=== PATIENT | female | born 1945 | race Caucasian/White ===

== ENCOUNTER 2017-03-31 18:54 | Inpatient (IN) ==
[2017-03-31 19:50] LABS: MANUAL DIFF NEEDED? NO
[2017-03-31 19:54] LABS: BASO% 0.2 % (0.0-0.8); EOS# 0.17 X1000 (0.0-0.7); EOS% 1.7 % (0.0-10.0); HEMATOCRIT 42.4 % (37.0-47.0); HEMOGLOBIN 13.5 g/dL (12.0-16.0); IMM GRAN# 0.03 X1000 (0.0-0.04); IMM GRAN% 0.3 % (0.0-0.5); LYMPH# 4.26 X1000 (1.2-3.4); LYMPH% 41.4 % (20.5-51.1); MCH 27.4 PG (27-31); MCHC 31.8 g/dL (33-37); MCV 86.2 FL (81-99); MONO# 0.94 X1000 (0.11-0.59); MONO% 9.1 % (1.7-9.3); MPV 11.8 FL (7.4-10.4); NEUT% 47.3 % (42.2-75.2); PLT 272 X1000 (130-400); RBC 4.92 XMIL (4.2-5.4)
[2017-03-31 20:01] LABS: URINE MICRO REVIEW NEEDED? NO; URINE SOURCE CLEAN CATCH
[2017-03-31 20:03] LABS: PROTIME 10.5 Seconds (9.2-11.7); PTT 24.3 Seconds (22.0-36.0)
[2017-03-31 20:05] LABS: BILIRUBIN URINE NEGATIVE (NEGATIVE); BLOOD URINE NEGATIVE (NEGATIVE); COLOR YELLOW; GLUCOSE URINE NEGATIVE (NEGATIVE); LEUKOCYTES URINE TRACE (NEGATIVE); NITRITE URINE NEGATIVE (NEGATIVE); PROTEIN URINE NEGATIVE (NEGATIVE); SP GRAVITY URINE 1.002; TURBIDITY URINE CLEAR (CLEAR); UR EPITHELIAL CELLS <10 /HPF (<10); URINE BACTERIA NEGATIVE /HPF; URINE CULTURE NEEDED? YES; URINE RBC <10 /HPF (<10); URINE WBC <10 /HPF (<10); UROBILINOGEN URINE NORMAL (NORMAL)
[2017-03-31 20:11] LABS: AGAP 20; ALBUMIN 4.7 g/dL (3.5-5.0); ALKALINE PHOSPHATASE 72 U/L (32-104); BUN 11 mg/dL (8-22); CALCIUM 10.7 mg/dL (8.8-10.2); CHLORIDE 97 mmol/L (98-107); CK PROFILE 69 U/L (24-173); COSMO 284; GOT 41 U/L (10-30); GPT 22 U/L (10-36); SODIUM 141 mmol/L (136-145); TCO2 24 mmol/L (25-35); TOTAL BILIRUBIN 0.28 mg/dL (0.20-1.00); TOTAL PROTEIN 8.1 g/dL (6.3-8.3)
--- NOTE | 2017-03-31 20:13 | Diag Imaging Result Doc PS360 ---
EXAM: CHEST-PORTABLE HISTORY: AMS TECHNIQUE: Portable AP COMPARISON: None. FINDINGS: The lungs are well expanded. Heart is not enlarged. The vessels are not distended. No pneumonia. No pleural effusions identified. IMPRESSION: Negative chest. Electronically signed by Nitish Hicks 03/31/2017 8:11 PM
[2017-03-31 20:15] LABS: UR AMPHETAMINES QUAL NONE DETECTED (NONE DETECT); UR BARBITUATES QUAL NONE DETECTED (NONE DETECT); UR BENZODIAZEPIN QUAL NONE DETECTED (NONE DETECT); UR CANNABINOIDS QUAL NONE DETECTED (NONE DETECT); UR COCAINE QUAL NONE DETECTED (NONE DETECT); UR METHADONE QUAL NONE DETECTED (NONE DETECT); UR OPIATES QUAL NONE DETECTED (NONE DETECT); UR OXYCODONE QUAL NONE DETECTED (NONE DETECT); UR PCP QUAL NONE DETECTED (NONE DETECT)
--- NOTE | 2017-03-31 20:27 | Diag Imaging Result Doc PS360 ---
EXAM: CT HEAD WITHOUT HISTORY: Stroke TECHNIQUE: CT brain without contrast. Dose reduction protocol. COMPARISON: None. FINDINGS: No parenchymal hemorrhage. No epidural or subdural hematoma. No subarachnoid hemorrhage. There is a large hypodense area in the medial right occipital lobe. This is consistent with a recent infarct. No midline shift. No hydrocephalus. No sinus opacification. IMPRESSION: 1.Recent right occipital infarct 2.No hemorrhage 3.A preliminary report was called to Dr. Evans in the emergency room at 8:20 PM Electronically signed by Nitish Hicks 03/31/2017 8:24 PM
[2017-03-31] MEDS ORDERED: ASPIRIN PO STA (20:39)
[2017-03-31] MEDS: NS 1,000 ML IV SCH (20:45)
--- NOTE | 2017-03-31 22:18 | HISTORY AND PHYSICAL ---
PCP: Is Dr. Sergio Rasheed. CHIEF COMPLAINT: Left-sided visual disturbance. HISTORY OF PRESENT ILLNESS: Mrs. Frias is a is a 71-year-old female with a history of hypertension, diabetes mellitus, hypothyroidism, diabetic neuropathy and others who presents with a 4-day history of left-sided blurry vision. She awoke around 4 days ago with some blurry vision which did not get any better and today she went to her director of individual giving who did some tests in the office and then subsequently sent her to MRI. Preliminary read from MRI read possible stroke and the patient was sent to the ER. Currently the patient still has some blurry vision on the left but she denies at any time having visual loss, syncope or presyncope. She did report that while she was in MRI she had possibly some chest pain that went down the right side of her chest and only lasted a few seconds. Otherwise she has had no chest pain or shortness of breath. No abdominal pain. No fever, chills, cough or congestion, no orthopnea and no lower extremity edema. She got to the ER today and had a CT done which showed a fairly large right occipital lobe infarct. Her laboratory data is largely unremarkable, EKG does show sinus rhythm with a left bundle branch block. We did ask her about any history of rhythm disturbances, she did state that the other morning she woke up with what she thought was a nightmare and had severe palpitations which she attributed to anxiety. Again no chest pain other than what was described earlier. EKG did show sinus rhythm with a left bundle which is chronic as noted in 2015 on a stress test. She is now going to be admitted for further treatment and evaluation. PAST MEDICAL HISTORY: 1. Diabetes mellitus type 2. 2. Hypertension. 3. Diabetic neuropathy. 4. Hypothyroidism. 5. GERD. 6. Asthma. 7. Urinary incontinence. SURGICAL HISTORY: Hysterectomy, tonsillectomy and carpal tunnel release. SOCIAL HISTORY: Patient quit smoking 30 years ago. She denies alcohol or drug use. FAMILY HISTORY: Both parents , mother from COPD, father had a history of diabetes and hypertension. REVIEW OF SYSTEMS: Fourteen-point review of systems obtained and found to be negative with the exception of the HPI. ALLERGIES: To iodinated contrast both IV and oral. HOME MEDICATIONS: Allopurinol 100 mg daily, bisoprolol fumarate, hydrochlorothiazide 1 daily, Neurontin 600 mg at bedtime, levocetirizine 5 mg daily, Synthroid 115 mcg daily, melatonin 10 mg at bedtime, Prilosec 20 mg daily, Ditropan 5 mg daily, sitagliptin metformin 1 b.i.d., Accolate 60 mg daily. PHYSICAL EXAMINATION: VITAL SIGNS: Blood pressure is 186/78, heart rate 73, respiratory 22, O2 saturation 97% on room air. GENERAL: This is an overweight female lying in hospital bed in no acute distress. NEUROLOGIC: The patient is awake, alert, and oriented. She follows commands without any focal deficits. Peripheral vision is equal on both sides. Pupils are equal, round, and reactive to light. Oral mucosa is moist. Trachea is midline. No JVD. CHEST: Clear to auscultation bilaterally. CV: Regular rate and rhythm. S1-S2 is noted. No murmurs. GI: Soft, nondistended, nontender. Bowel sounds are positive. EXTREMITIES: No edema, clubbing or cyanosis. Pulses are 1+ bilaterally. DIAGNOSTIC DATA: Head CT, recent right occipital infarct. Chest x-ray negative. EKG sinus rhythm, left bundle branch block. WBC 10.29, hemoglobin 13.5, hematocrit 42.4, platelet count 272,000 PT 10.5, INR 1, sodium 141, potassium 4.0, chloride 97, CO2 24, anion gap 20, BUN 11, creatinine 0.7, glucose 151, calcium 10.7, AST 41, ALT 22, alkaline phosphatase 72, total bilirubin 0.28, albumin 4.7, CK and troponin are negative. UA is negative. Toxicology is negative. ASSESSMENT AND PLAN: 1. Acute right occipital infarct: Concern for possible embolic cerebrovascular accident given her palpitations and area of infarct. We are going to check an echocardiogram and carotids in the morning. She does have an MRI CD with her so there is no need to repeat that. It was done at 5 p.m. this evening. Will continue to monitor telemetry for any paroxysms of atrial fibrillation, continue neuro checks and consult Neurology in the morning. Will make sure she is on aspirin, check hemoglobin A1c and lipid panel in the morning. 2. Hypertension. Will allow for permissive hypertension in the initial time, only treat SBP greater than 210 or DBP greater than 110. 3. Diabetes mellitus. Will check pattern blood sugars and add sliding scale insulin, check hemoglobin A1c in the morning, hold on her oral antidiabetics for now. 4. Hypothyroidism: Check thyroid panel in the morning and continue her Synthroid. 5. Chest pain/palpitations: We are going to trend her enzymes make sure she is on aspirin and check an echocardiogram and continue to monitor telemetry. 6. Deep vein thrombosis prophylaxis with SCDs. Further recommendations to follow. Dictated by CATHLEEN Cook for Perry Zavala MD cc: MD Perry Hernandez MD
[2017-04-01] MEDS: LIPITOR PO SCH ×2 (02:47→21:25)
[2017-04-01] MEDS: NEURONTIN PO SCH ×2 (02:53→21:26)
[2017-04-01] MEDS: MELATONIN PO SCH ×2 (02:55→21:25)
--- NOTE | 2017-04-01 05:20 | EKG Report ---
Test Performed on : 03/31/2017 7:04:30 PM Test Reason : AMS Blood Pressure : / mmHG Vent. Rate : 080 BPM Atrial Rate : 080 BPM P-R Int : 170 ms QRS Dur : 140 ms QT Int : 442 ms P-R-T Axes : 028 000 126 degrees QTc Int : 509 ms Normal sinus rhythm. with sinus arrhythmia. Left bundle branch block Abnormal ECG When compared with ECG of 25-MAY-2013 15:19, Left bundle branch block is now present Unconfirmed Result
[2017-04-01] MEDS: HUMALOG SUBQ SCH ×4 (06:36→21:26)
[2017-04-01 07:13] LABS: HEMATOCRIT 41.3 % (37.0-47.0); HEMOGLOBIN 13.1 g/dL (12.0-16.0); MCH 27.6 PG (27-31); MCHC 31.7 g/dL (33-37); MCV 87.1 FL (81-99); MPV 11.8 FL (7.4-10.4); RBC 4.74 XMIL (4.2-5.4)
[2017-04-01 07:29] LABS: HEMOGLOBIN A1C 7.8 % (4.8-6.0)
[2017-04-01 07:36] LABS: AGAP 15; BUN 12 mg/dL (8-22); CHLORIDE 98 mmol/L (98-107); COSMO 281; POTASSIUM 4.2 mmol/L (3.5-5.1); SODIUM 138 mmol/L (136-145); TCO2 25 mmol/L (25-35)
[2017-04-01] MEDS: DITROPAN PO SCH (08:16)
[2017-04-01] MEDS: ASPIRIN PO SCH (08:16)
[2017-04-01] MEDS: ZYRTEC PO SCH (08:16)
[2017-04-01] MEDS: PRILOSEC PO SCH (08:16)
[2017-04-01] MEDS ORDERED: ACCOLATE PO SCH (09:00)
[2017-04-01] MEDS ORDERED: SYNTHROID PO SCH (09:00)
[2017-04-01] MEDS: NS 1,000 ML IV SCH (09:31)
[2017-04-01] MEDS: TRICOR PO SCH (09:34)
[2017-04-01] MEDS: SYNTHROID PO SCH (09:34)
--- NOTE | 2017-04-01 14:26 | CONSULTATION ---
DATE OF CONSULTATION: 04/01/2017 The patient is seen in consultation at the request of Dr. Snyder for evaluation of stroke. HISTORY OF PRESENT ILLNESS: This is a 71-year-old, right-handed female with hypertension, diabetes and hyperlipidemia who is admitted with a left sided visual disturbance and found to have had a subacute right occipital infarct. The patient states that onset of symptoms was this past . She reports a sense as though there was a ayers cloud on the left side of her vision. She did close each eye and noticed it on the left side in both eyes. From to Thursday the symptoms were waxing and waning and coming and going with some frequency until Thursday when she woke up, and they were most prominent as well as persistent. She was initially seen by her eye doctor who obtained an MRI and there was note of the right occipital infarct. She was sent to the ER for further evaluation. She denies any focal numbness, or weakness. No dizziness or dysarthria. No loss of consciousness. No unsteady gait. PAST MEDICAL HISTORY: Diabetes, hypertension, diabetic neuropathy, hypothyroidism, GERD, asthma, urinary incontinence, hysterectomy, tonsillectomy, carpal tunnel release. SOCIAL HISTORY: She quit smoking 30 years ago. Used to smoke a half pack per day. No alcohol or illicit drug use. FAMILY HISTORY: Her father had diabetes and hypertension. Her mother had COPD. ALLERGIES: To iodinated contrast. HOME MEDICATIONS: Reviewed in the chart. She was not taking any anti-platelet therapy. REVIEW OF SYSTEMS: Balance of 10 was conducted and was otherwise negative except that detailed in the HPI. PHYSICAL EXAMINATION: Vital Signs: Afebrile, blood pressure 177/78, pulse 71, respirations 18, 99% on room air. General: This is an obese female, supine in bed, asleep initially. Arouses as I enter the room and call her name. No acute distress. Neck: Supple. No meningismus. Trachea midline. HEENT: Unremarkable. Cardiovascular: Intact pulses. No significant edema. Regular rate. Lungs: No increased work of breathing. Normal chest rise and expansion. No audible wheezes. Abdomen: Soft, nontender. Nondistended. Extremities: Well perfused. Warm. Intact pulses. No significant swelling. Skin: Warm, dry, and intact without lesion. Mental status: Is awake, alert, oriented. Speech is fluent. Attention and concentration are intact. Language intact. Appropriately conversant. Spontaneous. Cranial nerves: ADDIS. Conjugate gaze. Ocular movements are full. She has a left field cut to confrontational testing. Face is symmetric with equal activation. Facial sensation is intact. Tongue protrudes midline. Palate elevates symmetrically. Shoulder shrug is full. Motor exam, no drift. Strength is intact and symmetric 5/5 throughout. Coordination is intact. No evidence of abnormality on testing. Sensory testing revealed no asymmetry to testing. No clonus. Toes are downgoing. Gait: Normal casual gait unassisted. DIAGNOSTICS: A noncontrast head CT was personally reviewed. There is a recent right occipital infarct. No hemorrhage. EKG showed sinus rhythm with sinus arrhythmia, left bundle branch block. Chest x-ray was negative. LAB WORK: Was reviewed in the chart. INR 1. BUN 12, creatinine 0.7. Hemoglobin A1c 7.8. Triglycerides 1004, cholesterol 258. LDL 125. HDL 41. ASSESSMENT AND PLAN: 71-year-old right-handed female with diabetes, hypertension and hyperlipidemia presenting with a subacute right occipital infarct. She has a left field cut on exam. No other focal findings. Agree with the current workup. Her description of gradually worsening symptoms as opposed to maximal at onset symptoms and sustained clinically sounds more consistent with an atherosclerotic cause as opposed to embolic, though workup for both should be done. Risk factor management is mason here. Tight control of diabetes. High potency statin such as the Lipitor 40 that has been started in the setting of an LDL greater than 100 with acute stroke. Blood pressure control as it has been several days since the onset of her symptoms. Transthoracic echocardiogram. I see she was sent for carotid Dopplers and I believe we are able to assess the posterior circulation perhaps with those here which is what would be needed in the setting of this posterior circulation stroke, those are pending. She was not previously on any anti-platelet therapy therefore, I would recommend a low- dose aspirin 81 mg daily. I do also think it is reasonable to send the patient home with a 30 day event monitor to evaluate for paroxysmal atrial fibrillation for a more complete workup should this not be uncovered on telemetry while she is hospitalized. Diet and exercise were encouraged. Lastly given her field cut on exam she may have some difficulty with driving and may need some type of evaluation regarding her safety with driving. Thank you for this consultation. cc: Yue Grant MD MTDD
[2017-04-01] MEDS: TYLENOL PO PRN (15:57)
--- NOTE | 2017-04-01 16:40 | PROGRESS NOTE ---
DATE: 04/01/2017 SUBJECTIVE: Today Ms. Frias referred to be doing okay. Still has some residual blurriness in the left eye, but according to her, this is improving. Patient complains of frequent urination and also headaches. OBJECTIVE: Vital signs: Blood pressure is 162/65, pulse of 77, respiration is 18, temperature is 98.3 degrees. General: Ms. Frias is a 71-year-old female. She was actually sitting up in a chair, not seemingly distressed. HEENT: Mucosa is pink and moist. Anicteric. Acyanotic. Neck: Supple. Chest: Good air entry bilateral. No crepitations. No rhonchi. Cardiovascular: Regular rate and rhythm. Abdomen: Soft. Distended but nontender. Extremities: No pedal edema. HAUL CANE BRAKEMAN: Patient is awake, alert, oriented x4. There is no focal neurological deficit except for mildly reduced left visual field, mild left peripheral vision decrease. LABORATORY DATA: Has been reviewed. Unremarkable. Chemistry has been reviewed. The triglyceride is 1004 with a cholesterol 258. Patient's HDL is 61. TSH is 8.16. A1c is 7.8. Urine culture shows no growth. IMAGING: A CT scan of the head shows a recent right occipital infarct. ASSESSMENT: 1. Recent right posterior circulation infarct with left visual field defect and blurry vision. 2. Hypertriglyceridemia. 3. Obesity with BMI of 34.8. 4. Diabetes mellitus. A1c 7.8. 5. Hypothyroidism with elevated TSH consistent with inadequate thyroid supplementation. 6. Hypertension. 7. Overreactive bladder. Patient is on oxybutynin. We will add tamsulosin to it. Urine culture has been negative. The patient did think that she has urinary tract infection, but I did show her the report of the culture which is completely normal. So in general I think Ms. Frias is relatively stable. We are going to start her on fenofibrate at a dose of 145 daily. We are going to increase her thyroid supplements as well to 125. We will continue with the aspirin and statin. We will do an echocardiogram and also a CT angiogram of the head and the brain to look at the circulation. Patient already had an MRI I understand at her at her PCP's office so we are just waiting for the report on that. We will not do another MRI over here since we know she already has a stroke in the posterior circulation when using the CT scan. The patient has already been seen by Neurology. DISPOSITION: I think Ms. Frias is relatively stable. If her echo and her CTA are unremarkable we probably will be able to send her home tomorrow on the above medications. cc: Claudio Snyder MD
[2017-04-01] MEDS ORDERED: FLOMAX PO SCH (21:00)
[2017-04-01] MEDS: ACCOLATE PO SCH (21:25)
--- NOTE | 2017-04-01 22:36 | Carotid Study ---
DATE: 04/01/2017 PROCEDURE: Carotid duplex imaging. REFERRING PHYSICIAN: Dr. Zavala INTERPRETING PHYSICIAN: Dr. Burleson TECH: INDICATIONS: Stroke. There is visual defect in the left eye and headache. OBSERVED DATA RIGHT LEFT Brachial Blood Pressure Carotid Pulse Bruits: Carotid/Sub DIAGRAM OF ULTRASOUND IMAGING R L RIGHT INT EXT INT EXT LEFT Moses (cm/s) Moses (cm/s) Subclavian 177/0 Subclavian 119/0 CCA Proximal 88/13 CCA Proximal 96/15 CCA Distal 60/9 CCA Distal 79/14 Bulb 48/12 Bulb 61/12 ICA Proximal 50/14 ICA Proximal 78/21 ICA Mid 114/27 ICA Mid 72/22 ICA Distal 68/21 ICA Distal 69/20 ECA 97/8 ECA 99/8 Vertebral 61/14 Vertebral 49/10 ICA/CCA Ratio 1.3 ICA/CCA Ratio 0.8 % Stenosis 40-59% % Stenosis 0-39% FINDINGS: There is a small amount of echogenic plaque at the proximal right internal carotid artery. Minimal atherosclerotic disease is seen on the left carotid system. There is antegrade vertebral flow bilaterally. PHYSICIAN INTERPRETATION: Bilateral plaque disease as described above producing a moderate degree of stenosis in the right internal carotid artery. This is not hemodynamically significant. cc: MD Mark So CRNP
[2017-04-02] MEDS: TYLENOL PO PRN (03:17)
[2017-04-02] MEDS: HUMALOG SUBQ SCH ×2 (06:19→11:10)
[2017-04-02] MEDS: PRILOSEC PO SCH (06:19)
[2017-04-02] MEDS ORDERED: MORPHINE IV ONE (06:30)
[2017-04-02 07:18] LABS: HEMATOCRIT 37.2 % (37.0-47.0); HEMOGLOBIN 11.8 g/dL (12.0-16.0); MCH 27.4 PG (27-31); MCHC 31.7 g/dL (33-37); MCV 86.5 FL (81-99); MPV 11.8 FL (7.4-10.4); RBC 4.3 XMIL (4.2-5.4)
[2017-04-02 07:44] LABS: AGAP 19; BUN 16 mg/dL (8-22); CALCIUM 9.3 mg/dL (8.8-10.2); CHLORIDE 97 mmol/L (98-107); COSMO 282; POTASSIUM 4.1 mmol/L (3.5-5.1); SODIUM 138 mmol/L (136-145); TCO2 22 mmol/L (25-35)
[2017-04-02] MEDS ORDERED: SOLU-MEDROL IV ONE (08:43)
[2017-04-02] MEDS ORDERED: BENADRYL IV ONE (08:44)
[2017-04-02] MEDS ORDERED: SODIUM CHLORIDE 0.9% INJ ONE (08:44)
[2017-04-02] MEDS ORDERED: PEPCID IV ONE (08:44)
[2017-04-02] MEDS: DITROPAN PO SCH (09:18)
[2017-04-02] MEDS: TRICOR PO SCH (09:18)
[2017-04-02] MEDS: SYNTHROID PO SCH (09:18)
[2017-04-02] MEDS: ZYRTEC PO SCH (09:18)
[2017-04-02] MEDS: ASPIRIN PO SCH (09:19)
[2017-04-02] MEDS: ACCOLATE PO SCH (09:19)
--- NOTE | 2017-04-02 11:23 | Diag Imaging Result Doc PS360 ---
EXAM: CT ANGIOGRAM/HEAD AND NECK HISTORY: stroke TECHNIQUE: CT angiogram neck and head without contrast. MIP images obtained. COMPARISON: None. FINDINGS: CT angiogram neck: The takeoff of the common carotid arteries is poorly seen due to artifact and timing. Questionable mild narrowing to the proximal portion of each common carotid artery. The remainder of the right common carotid artery is normal. Minimal plaque in the bulb with narrowing of approximately 40%. Normal internal carotid artery. There is normal flow in the mid left common carotid artery. A moderate amount of plaque is present in the bulb. Stenosis is approximately 40%. The remainder of the internal carotid artery is normal. CT angiogram head: There is normal flow in each distal internal carotid artery. Normal flow within each anterior and middle cerebral artery. Normal flow in the basilar artery. Although the MIP images suggest mild narrowing in the proximal posterior cerebral arteries, this cannot be confirmed on the axial images. No occlusion. No aneurysm. IMPRESSION: 1.Mild stenosis within each carotid bulb of approximately 40%. Questionable stenosis in each proximal common carotid artery. 2.Questionable mild narrowing of each proximal posterior cerebral artery. I believe this is artifact on the MIP images. No definite abnormality on the axial images. No other abnormality CT angiogram head. Electronically signed by Nitish Hicks 04/02/2017 11:20 AM
[2017-04-02 11:42] VITALS: BP 163/64
--- NOTE | 2017-04-02 13:21 | PROGRESS NOTE ---
DATE: 04/02/2017 LOCATION: Room 368. Ms. Frias is awake and alert. Her carotid ultrasound showed no definite findings, some right internal carotid artery plaque which was not hemodynamically significant. Cervical CTA is reported to show 40% stenosis in the carotid bulb bilaterally, but no hemodynamically significant stenosis. CT angiogram raises question of mild narrowing of the posterior cerebral arteries but not certain that is a valid finding. Her systolic blood pressures have been stable in the 150s to 160s and she is tolerating that. Dr. Grant saw her for a neurology evaluation, initial consult. I do not have anything to add to Dr. Grant's suggestions. Nothing new neurologically. cc: Tiara Gonzalez III, MD
--- NOTE | 2017-04-02 22:16 | ECHO REPORT ---
ORDER DATE: 04/01/2017 STUDY: Echocardiogram report. SUMMARY: 1. Fair quality study with difficult parasternal windows and good apical windows. 2. Aortic valve demonstrates mild sclerosis and is trileaflet. Aortic valve opens normally on 2- dimensional images. There is mild mitral annular calcification and very mild mitral regurgitation. Tricuspid and pulmonic valves are without structural abnormality. The aortic root is normal in size. 3. Normal left ventricular chamber size with mild concentric left ventricular hypertrophy suggested. Estimated left ventricular ejection fraction is approximately 55%. No regional wall motion abnormalities are evident. There is a false tendon traversing the left ventricular apex. Doppler suggests grade 1 left ventricular diastolic dysfunction. The left atrium is borderline enlarged. Right atrium, right ventricle normal in size with normal right ventricular systolic function. 4. Tiny posterior pericardial effusion. 5. Appearance of inferior vena cava suggests normal central venous pressure. CONCLUSIONS: 1. Mild aortic valve sclerosis without stenosis. 2. Mild mitral annular calcification with very mild mitral regurgitation. 3. Mild concentric left ventricular hypertrophy with estimated left ventricular ejection fraction 55%. 4. Grade 1 left ventricular diastolic dysfunction. 5. Borderline left atrial enlargement. cc: MD Claudio Lundberg MD
--- NOTE | 2017-04-04 14:24 | DISCHARGE SUMMARY ---
ADMISSION DATE: 03/31/2017 DISCHARGE DATE: 04/02/2017 FINAL DISCHARGE DIAGNOSES: 1. Right posterior circulation infarct with left visual defect. 2. Hypertriglyceridemia. 3. Morbid obesity. 4. Diabetes mellitus type 2. 5. Hypothyroidism. 6. Hypertension. 7. Overactive bladder. 8. Dyslipidemia. CONSULTATIONS REQUESTED DURING THIS HOSPITAL STAY: Neurology consultation with Dr. Grant. HOSPITAL COURSE: Ms. Frias is a 71-year-old female with a history of multiple medical problems, who presented to the ER with a chief complaint of left-sided visual disturbance. On admission, a head CT was done that revealed a recent right occipital infarct. In light of these findings, neurology was consulted and the stroke workup was initiated. The patient underwent a carotid Doppler study that revealed bilateral plaque disease producing a moderate degree of stenosis in the right internal carotid artery along the lines of 40% to 59%, but it was not noted to be hemodynamically significant. The patient also had an echocardiogram done that revealed mild aortic valve sclerosis without stenosis with an ejection fraction of 55% and a tiny posterior pericardial effusion. The patient was also noted to have diastolic dysfunction grade 1. A CTA of the head and neck was also done that revealed a mild stenosis within each carotid bulb of approximately 40%. Over the course of the hospitalization, the patient improved clinically. The patient was placed on full dose aspirin, as well as statin therapy and advised to lose weight, and to obtain better control of her diabetes. The patient's hemoglobin A1c was noted to be high at 7.8. Also, the patient was noted to have a triglyceride level of 1000 with a cholesterol of 258. The patient was seen by physical therapy and continued to improve clinically. The patient was cleared for discharge on 04/02/2017. DISCHARGE MEDICATIONS: 1. Lipitor 40 mg p.o. at bedtime. 2. Aspirin 325 mg p.o. daily. 3. Synthroid 115 mcg oral daily. 4. Allopurinol 100 mg p.o. daily. 5. Janumet 1 tab oral twice a day. 6. Bisoprolol with hydrochlorothiazide 1 tab oral daily. 7. Gabapentin 600 mg p.o. at bedtime. 8. Accolate 20 mg p.o. twice a day. 9. Ditropan 5 mg p.o. daily. 10. Melatonin 10 mg p.o. at bedtime. 11. Prilosec 20 mg p.o. daily. 12. Xyzal 5 mg p.o. daily. DISCHARGE DIET: Low sodium, low cholesterol, and 1800 ADA diet. ACTIVITY: As tolerated. FOLLOWUP INSTRUCTIONS: The patient will need to follow up with Dr. Sergio Rasheed in 1 week. cc: MD Sergio Turner MD
--- NOTE | 2017-04-09 10:51 | ED EKG INTERP ---
This chart was entered by Bakari Solomon Scribe, acting as scribe for Douglas Evans MD. EKG Interpretation - EKG Time of EKG reading by physician:: 19:04 EKG Read and Signed by:: Douglas Evans EKG Interpretation (*Must complete 3 of following elements*): Abnormal Rate: 80 Rhythm: NSR with Sinus Arrhythmia [place]: normal QRS: normal IA Interval: normal Comments: Left bundle branch block Attestation - Physician/ ESPERANZA Attestation Patient care was provided by Advanced Practice Provider:: No The physician spent face to face time with patient:: Yes Advanced Practice Provider documentation review:: Supervising physician onsite and consulted in the evaluation and care of this patient. The physician did have a face to face encounter with the patient. This chart was documented by the indicated scribe, (Bakari Solomon Scribe) and accurately reflects the services I performed and decisions made by me, Douglas Evans MD, as attested by the provider's signature.
--- NOTE | 2017-04-09 10:51 | PROVIDER DOCUMENTATION ---
This chart was entered by Bakari Solomon Scribe, acting as scribe for Douglas Evans MD. HPI-Neurological Disorder - General Chief Complaint: Stroke-Like Symptoms Stated Complaint: STROKE SX Time Seen by Provider: 03/31/17 19:58 Source: patient Allergies/Adverse Reactions: Patient Allergies Allergy/AdvReac Type Severity Reaction Status Date / Time Iodinated Contrast- Oral and Allergy Severe HIVES Verified 03/31/17 21:13 IV Dye Home Medications: Home Medication List Medication Instructions Recorded Confirmed Last Taken Type Levothyroxine [Synthroid] 115 mcg PO DAILY 05/25/13 03/31/17 03/31/17 History Allopurinol 100 mg PO DAILY 03/31/17 03/31/17 03/31/17 History Bisoprolol Fumarate/Hctz 1 each PO DAILY 03/31/17 03/31/17 03/31/17 History [Bisoprolol-Hctz 5-6.25 mg Tab] Gabapentin [Neurontin] 600 mg PO QHS 03/31/17 03/31/17 03/30/17 History Levocetirizine Dihydrochloride 5 mg PO DAILY 03/31/17 03/31/17 03/31/17 History [Xyzal] Melatonin 10 mg PO QHS 03/31/17 03/31/17 03/31/17 History Omeprazole [Prilosec] 20 mg PO DAILY@0700 03/31/17 03/31/17 03/31/17 History Oxybutynin [Ditropan] 5 mg PO DAILY 03/31/17 03/31/17 03/31/17 History Sitagliptin Phos/Metformin HCl 1 each PO BID 03/31/17 03/31/17 03/31/17 History [Janumet 50-500 mg Tablet] Zafirlukast [Accolate] 20 mg PO BID 03/31/17 04/01/17 03/31/17 History ATORVAstatin [Lipitor] 40 mg PO QHS #30 tablet 04/02/17 Unknown Rx Aspirin 325 mg PO DAILY #30 tablet 04/02/17 Unknown Rx - History of Present Illness-Neuro Nature of Presenting Problem: 71 y/o F states 4 nights ago pt was having a nightmare, heart pounding with loss of vision in the left. Pt went to the eye dr at 3pm and sent for an MRI and afterwards decided to come to the ED. Headache Location: reports: other (right sided headache) Severity: reports: moderate Onset/Duration: reports: 4 days ago Timing: reports: still present Context: denies: low blood sugar, head injury, impaired speech, facial droop, falling, seizure activity Character of Altered Mental Status: denies: disoriented, trouble concentrating, unresponsive, seizure activity, decreased responsiveness Any recent trauma/injury?: reports: none Character of Deficits: reports: vision problem/glaucoma. denies: altered sensation, impaired speech, impaired swallowing, decreased ability to stand New weakness or altered sensation location:: reports: none Cognitive Baseline: alert, oriented x3 Associated Symptoms: reports: vision changes. denies: fainting, dizziness, fever/chills, nausea Similar Symptoms Previously?: No Recently seen or treated by another doctor?: Yes (Eye ) - Seizure First time to have a seizure?: No Witnessed seizure?: No Review of Systems - Adult - REVIEW OF SYSTEMS - ADULT Constitutional: denies: chills, fever Eyes: reports: decreased vision (left field only). denies: eye pain Ears, Nose, Mouth & Throat: reports: no symptoms reported Cardiovascular: denies: chest pain, edema Respiratory: denies: cough, shortness of breath, wheezing Gastrointestinal: denies: abdominal pain, hematemesis Genitourinary: reports: no symptoms reported Musculoskeletal: reports: no symptoms reported Integumentary: reports: no symptoms reported Neurological: reports: headache/migraines. denies: ataxia, dizziness/vertigo, numbness, seizure, slurred speech Psychiatric: reports: no symptoms reported Endocrine: reports: no symptoms reported Hematologic/Lymphatic: reports: no symptoms reported Allergic/Immunologic: reports: no symptoms reported All Other Systems: Reviewed and Negative Past History - Adult - PAST MEDICAL HISTORY-ADULT Review of Records: reports: Old Records Reviewed, Nursing Assessment Review, Medications Reviewed Cardiovascular: reports: HTN, hyperlipidemia Physical Exam- Neurological - Physical Exam-Neuro Initial Vital Signs Reviewed: Yes General Appearance: appears well, alert, no apparent distress Eye Exam: bilateral eye: normal inspection, PERRL, vision changes (left vision field diminished) HENMT: moist mucous membranes, normal ENT inspection, TMs normal, pharynx normal Head Injury: no evidence of injury, active bleeding Neck: non-tender, full range of motion, supple, normal inspection Respiratory: lungs clear, normal breath sounds Cardiovascular: normal peripheral pulses, regular rate, rhythm Extremity: normal range of motion, 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 negative: abnormal pupil position, facial droop, facial paresthesias, facial weakness, tongue deviation to R, tongue deviation to L Coordination/Gait: normal finger to nose, normal gait Motor/Sensory: no motor deficit, no sensory deficit, no pronator drift Neurologic: grossly normal, no motor/sensory deficits Integumentary: normal color, normal turgor, warm/dry Psych/Mental Status: normal thought content, normal thought process, oriented x 3 Progress - PLAN OF CARE/RESULTS Progress/Plan/Lab Results: Orders Category Date Time Status Admit - [facility] Routine AdmDCTranf 03/31/17 23:09 Ordered Activity - Up with Assistance ORDERED Care 03/31/17 23:09 Active Apply Mechanical Device [QM] ORDERED Care 03/31/17 23:09 Active Cardiac Monitoring DIRECTED Care 03/31/17 19:38 Completed Elevate Head of Bed DIRECTED Care 03/31/17 23:09 Active FSBS/Accucheck Result AC + HS Care 03/31/17 23:09 Active IV Insertion ORDERED Care 03/31/17 23:09 Completed Intake and Output-Strict ORDERED Care 03/31/17 23:09 Active Neurological Check ORDERED Care 03/31/17 23:09 Active Nursing- MD Consult Request ROUTINE Care 03/31/17 23:09 Completed Saline Loc NOW Care 03/31/17 19:38 Completed Vital Signs Order Q 4-HR ASSESS Care 03/31/17 23:09 Active Z-Document. for Tele Applied ORDERED Care 03/31/17 23:09 Completed Physician/Provider Consults Routine Cons 03/31/17 23:09 Ordered CHEST-PORTABLE [RAD] Stat Exams 03/31/17 19:[address] HEAD W/O CONTRAST [CT] Stat Exams 03/31/17 20:13 Completed A1C HGB W EST AVG GLUCOSE [CHEM] Routine Lab 04/01/17 06:45 Completed ALCOHOL BLOOD Stat Lab 03/31/17 19:30 Completed BASIC METABOLIC PANEL [CHEM] DAILY Lab 04/01/17 06:45 Completed BASIC METABOLIC PANEL [CHEM] DAILY Lab 04/02/17 06:30 Completed CBC WITH ELECTRONIC DIFF [HEME] Stat Lab 03/31/17 19:30 Completed CBC WITH NO DIFF [HEME] DAILY Lab 04/01/17 06:45 Completed CBC WITH NO DIFF [HEME] DAILY Lab 04/02/17 06:30 Completed CK PROFILE [SP CHEM] Lab 03/31/17 22:40 Completed CK PROFILE [SP CHEM] Stat Lab 03/31/17 19:30 Completed COMPREHENSIVE METABOLIC PANEL [CHEM] Stat Lab 03/31/17 19:30 Completed FOLATE Routine Lab 04/01/17 06:45 Completed FREE T4 Routine Lab 03/31/17 22:40 Completed LIPID PROFILE W/DIR LDL [LIPIDS] Routine Lab 04/01/17 06:45 Completed MAGNESIUM [CHEM] DAILY Lab 04/02/17 06:30 Completed PROTIME WITH INR [COAG] Stat Lab 03/31/17 19:30 Completed PTT [COAG] Stat Lab 03/31/17 19:30 Completed TROPONIN T Q8H Lab 03/31/17 22:40 Completed TROPONIN T Q8H Lab 04/01/17 06:45 Completed TROPONIN T Stat Lab 03/31/17 19:30 Completed TSH Routine Lab 04/01/17 06:45 Completed URINALYSIS W/POSS RFLX CULT-1 [URINALYSIS] Stat Lab 03/31/17 19:30 Completed URINE CULTURE [RM] Routine Lab 03/31/17 20:36 Completed URINE DRUG SCREEN Stat Lab 03/31/17 19:30 Completed VITAMIN B12 Routine Lab 04/01/17 06:45 Completed 0.9% Sodium Chloride Inj [Ns] 1,000 ml Med 03/31/17 20:37 Discontinued IV 75 mls/hr ATORVAstatin [Lipitor] Med 03/31/17 23:09 Discontinued 40 mg PO QHS Aspirin Med 04/01/17 09:00 Discontinued 325 mg PO DAILY Aspirin Med 03/31/17 20:39 Discontinued 325 mg PO STAT STA Cetirizine [Zyrtec] Med 04/01/17 09:00 Discontinued 10 mg PO DAILY Gabapentin [Neurontin] Med 04/01/17 02:45 Discontinued 600 mg PO QHS Insulin Lispro [Humalog] Med 04/01/17 07:00 Discontinued See Protocol SUBQ 0700,1100,1600,2100 Levothyroxine [Synthroid] Med 04/01/17 09:00 Discontinued 115 microgm PO DAILY Melatonin Med 04/01/17 02:45 Discontinued 10 mg PO QHS Omeprazole [Prilosec] Med 04/01/17 07:00 Discontinued 20 mg PO DAILY@0700 Oxybutynin [Ditropan] Med 04/01/17 09:00 Discontinued 5 mg PO DAILY Zafirlukast [Accolate] Med 04/01/17 09:00 Discontinued 60 mg PO DAILY Pulse Oximetry Stat Oth 03/31/17 19:38 Completed Telemetry [OM.EQ] Routine Oth 03/31/17 23:09 Active Carotid Ultrasound Routine Ther 04/01/17 06:00 Draft EKG [EKG] Stat Ther 03/31/17 19:38 Draft Transfer/Admit Order [TRANSFER] Routine Transfer 03/31/17 20:28 Completed Result Diagrams: 04/02/17 06:30 04/02/17 06:30 - CT/MRI 1 CT Study: Head Impression: Abnormal (Right occipital infarct, no hemmorages per Dr Hicks Radiology) CT Results: Per Radiology Ischemic stroke - CONSULTS/PCP/HOSPITALIST Notification #1 *Consult/PCP/Hospitalist*: Dr Zavala Hospitalist Time Discussed: 20:28 Reason/Comments: Admission for stroke Consult Disposition: Will see in ED Departure - Departure Date of Disposition Decision: 03/31/17 Time of Disposition Decision: 19:20 DIAGNOSIS: Ischemic stroke Disposition: ADMITTED INPATIENT 09 Certified Medical Emergency: Emergent Condition: Stable - Critical Care Note This patient required my direct & personal management of CC.: Yes Attestation - Physician/ ESPERANZA Attestation Patient care was provided by Advanced Practice Provider:: No The physician spent face to face time with patient:: Yes Advanced Practice Provider documentation review:: Supervising physician onsite and consulted in the evaluation and care of this patient. The physician did have a face to face encounter with the patient. This chart was documented by the indicated scribe, (Bakari Solomon Scribe) and accurately reflects the services I performed and decisions made by me, Douglas Evans MD, as attested by the provider's signature.
== END 2017-04-02 17:38 | disposition home or self-care (01) ==
LOC: ED 18:54 → 3N 22:30 → SUATTDRO 22:30
PROVIDERS: ATTEND Internal Medicine